=== PATIENT | female | born 1985 | race Caucasian/White ===

== ENCOUNTER 2022-06-29 22:57 | Emergency (ER) | payer MEDICAID ==
[~2022-06-29] VITALS: Ht 165.1 cm; Wt 85.0 kg
[2022-06-30 02:10] LABS: Eosinophils # (auto) 0.1 10 ^3/uL (0-0.8)
[2022-06-30 02:12] LABS: Basophils # (auto) 0 10 ^3/uL (0-0.2); Basophils % (auto) 0.5 % (0.0-2.0); Hematocrit 35.5 % (36.0-46.0); Hemoglobin 11.2 g/dL (12.2-16.2); Lymphocytes % (auto) 34.9 % (10.0-50.0); Mean Corpuscular Hgb Conc. 31.5 g/dL (32.0-36.0); Mean Corpuscular Volume 79.2 fL (80.0-100.0); Monocytes # (auto) 0.5 10 ^3/uL (0-1.3); Monocytes % (auto) 5.6 % (0.0-12.0); Red Blood Cells 4.48 10^6/uL (4.0-5.20); Red Cell Distribution Width 17.5 % (11.8-14.3); White Blood Cell 8.7 10^3/uL (4.4-10.8)
[2022-06-30 02:27] LABS: Albumin 3.5 g/dL (3.4-5.0); Anion Gap 8 (5-15); BUN/Creatinine Ratio 27.6; Blood Alcohol < 3.0 mg/dL (0-5); Blood Urea Nitrogen 21 mg/dL (7-18); Calcium 9.1 mg/dL (8.5-10.1); Carbon Dioxide 20 mmol/L (21-32); Chloride 110 mmol/L (98-107); GFR African American 112 mL/min; GFR Non-African American 93 mL/min; Glucose 103 mg/dL (74-106); Potassium 3.5 mmol/L (3.5-5.1); Sodium 138 mmol/L (136-145)
[2022-06-30 02:31] LABS: Alanine Aminotransferase 29 U/L (13-56); Alkaline Phosphatase 119 U/L (45-117); Aspartate Aminotransferase 12 U/L (15-37); Bilirubin, Total 0.2 mg/dL (0.2-1.0); Total Protein 7.9 g/dL (6.4-8.2)
[2022-06-30] MEDS ORDERED: LORazepam 2MG/ML-1ML VIAL IM ONE ×2 (06:45→20:30)
[2022-06-30] MEDS ORDERED: CEPH-510 PO (22:15)
[2022-07-01] MEDS ORDERED: HALOPERIDOL LACTATE 5 MG/ML INJ VIAL IM ONE (10:00)
[2022-07-01] MEDS: OLANZapine 5 MG TAB PO SCH (22:41)
[2022-07-02] MEDS: OLANZapine 5 MG TAB PO SCH ×2 (10:26→22:33)
[2022-07-03] MEDS ORDERED: LORazepam 2MG/ML-1ML VIAL IM ONE ×3 (01:15→01:30)
[2022-07-03] MEDS ORDERED: HALOPERIDOL LACTATE 5 MG/ML INJ VIAL IM ONE (01:15)
[2022-07-03] MEDS ORDERED: diphenhdrAMINE HCL 50 MG/1 ML VL IV ONE (01:15)
[2022-07-03] MEDS: OLANZapine 5 MG TAB PO SCH (15:17)
[2022-07-03 19:47] VITALS: BP 123/86
== END 2022-07-03 22:28 ==
LOC: EDBD 22:57 → ER 22:57
DX: R45.851 Suicidal ideations (principal); F41.9 Anxiety disorder, unspecified; F32.9 Major depressive disorder, single episode, unspecified; F20.9 Schizophrenia, unspecified; Z20.822 Contact with and (suspected) exposure to COVID-19
CPT/HCPCS: 36415; 80053; 80320; 84702; 85025; 87426; 96372; 96374; 99285; J1200; J2060

== ENCOUNTER 2022-09-05 16:11 | Emergency (ER) | payer MEDICAID ==
[~2022-09-05] VITALS: Ht 152.4 cm; Wt 76.0 kg
[~2022-09-05 16:11] MED LIST: CEPH-510 PO
[2022-09-05] MEDS ORDERED: ACETAMINOPHEN 500 MG TAB PO ONE (17:15)
[2022-09-05] MEDS ORDERED: ACET-1158 PO (18:00)
[2022-09-05] MEDS ORDERED: IBUP800T26 PO (18:00)
[2022-09-05 18:07] VITALS: BP 108/67
== END 2022-09-05 18:28 | disposition home or self-care (01) ==
LOC: ER 16:11
DX: S30.0XXA Contusion of lower back and pelvis, initial encounter (principal); W18.11XA Fall from or off toilet without subsequent striking against object, initial encounter; Y93.E1 Activity, personal bathing and showering; Y92.091 Bathroom in other non-institutional residence as the place of occurrence of the external cause; Y99.8 Other external cause status
CPT/HCPCS: 71111; 72220

== ENCOUNTER 2024-09-27 08:06 | Inpatient (IN) | payer MEDICAID ==
[~2024-09-27] VITALS: Ht 152.4 cm; Wt 96.7 kg
[2024-09-27] VITALS (7 sets, daily range): BP systolic 121–134; BP diastolic 77–92; PULSE 78–103; RESP 12–19; TEMP 98–98.6; O2SAT 90–100
[~2024-09-27 08:06] MED LIST changes: +ACET500T58 PO; +IBUP-1455 PO
--- NOTE | 2024-09-27 08:55 | ED.PDOC ---
SOB-HPI HPI Comments 39F presents to the ER w/ conference planning manager and w/ prior Hx of depression, anxiety, SZ and schizophrenia which all may be associated to the c/c of Hematuria. The conference planning manager stated that she noticed the pt having blood in her urine last night and it was clear today. When the pt arrived in triage she was complaining of Lower ABD pain, but the nurse noticed the pt having cough, congestion and SOB, then asked the conference planning manager how long she has been having these symptoms, and she stated that she just noticed. Pt had a SAT of 88% RA and was given 2L NC and is SAT of 100%. SHx of Brain Sx-hydrocephalus when younger.Denies chills, fever, N/V/D, CP or other associated symptom's, modifiers, or recent injuries or sick contact at this time. Chief Complaint: Shortness of Breath Time Seen by MD: 08:30 Primary Care Provider: MAX Mata notes: Nurses Notes, Medications, Allergies Information Source: Patient (and conference planning manager) Mode of Arrival: Ambulatory Severity: Moderate Timing: Hours Duration: Since onset Context: At Rest PE Risk Factors: None History of: Anxiety Prehospital treatment: None Associated Signs and Symptoms: Cough, Nasal Congestion If cough with SOB: Non-Productive Past Medical History PAST MEDICAL HISTORY: Anxiety, Depression, Schizophrenia, Seizures Surgical History (Other): Brain Sx-hydrocephalus when younger SEPARATOR OPERATOR History: No Pertinent SEPARATOR OPERATOR History Family History Family History: Reviewed,noncontributory to illness, Unknown Social History Smoker: Non-Smoker Alcohol: Denies ETOH Use Drugs: Denies Drug Use Lives In: Home Constitutional: denies: chills, diaphoresis, fatigue, fever, malaise, sweats, weakness, others EENTM: denies: blurred vision, double vision, ear bleeding, ear discharge, ear drainage, ear pain, ear ringing, eye pain, eye redness, hearing loss, mouth pain, mouth swelling, nasal discharge, nose bleeding, nose congestion, nose pain, photophobia, tearing, throat pain, throat swelling, voice changes, others Respiratory: reports: cough, shortness of breath; denies: hemoptysis, orthopnea, SOB at rest, SOB with excertion, stridor, wheezing, others Cardiovascular: denies: chest pain, dizzy spells, diaphoresis, Dyspnea on exertion, edema, irregular heart beat, left arm pain, lightheadedness, palpitations, PND, syncope, others Gastrointestinal: denies: abdomen distended, abdominal pain, blood streaked bowels, constipated, diarrhea, dysphagia, difficulty swallowing, hematemesis, melena, nausea, poor appetite, poor fluid intake, rectal bleeding, rectal pain, vomiting, others Genitourinary: reports: hematuria; denies: abnormal vagina bleeding, burning, dyspareunia, dysuria, flank pain, frequency, incontinence, pain, , vagina discharge, urgency, others Neurological: denies: dizziness, fainting, headache, left sided numbness, left sided weakness, numbness, paresthesia, pre-existing deficit, right sided numbness, right sided weakness, seizure, speech problems, tingling, tremors, weakness, others Musculoskeletal: denies: back pain, gout, joint pain, joint swelling, muscle pain, muscle stiffness, neck pain, others Integumetry: denies: bruises, change in color, change in hair/nails, dryness, laceration, lesions, lumps, rash, wounds, others Allergic/Immunocompromised: denies: Difficulty Healing, Frequent Infections, Hives, Itching, others Hematologic/Lymphatic: denies: anemia, blood clots, easy bleeding, easy bruising, swollen glands, others Endocrine: denies: excessive hunger, excessive sweating, excessive thirst, excessive urination, flushing, intolerance to cold, intolerance to heat, unexplained weight gain, unexplained weight loss, others Psychiatric: denies: anxiety, bipolar disorder, depression, hopeless, panic disorder, schizophrenia, sleepless, suicidal, others All Other Systems: Reviewed and Negative Physical Exam General Appearance: No Apparent Distress, Obese, Other (Sedated from own medic ations schizophrenia and anxiety) HEENT: Normal ENT Inspection, PERRL/EOMI, Pharynx Normal, TMs Normal, Other (No facial asymmetry) Neck: Full Range of Motion, Non-Tender, Normal, Normal Inspection Respiratory: Chest Non-Tender, Lungs Clear, No Accessory Muscle Use, No Respiratory Distress, Normal Breath Sounds Cardiovascular: No Edema, No JVD, No Murmur, No Gallop, Normal Peripheral Pulses, Regular Rate/Rhythm Breast Exam: Deferred Gastrointestinal: No Organomegaly, Non Tender, No Pulsatile Mass, Normal Bowel Sounds, Soft Genitalia: Deferred Pelvic: Deferred Rectal: Deferred Extremities: No calf tenderness, Normal capillary refill, Normal inspection, Normal range of motion, Non-tender, No pedal edema Musculoskeletal : Apperance: Normal Neurologic: Depressed Affect, No Sensory Deficits Cerebellar Function: Normal Reflexes: Normal Skin: Dry, Normal Color, Warm Peripheral Pulses: 1+ carotid (R), 1+ carotid (L) Lymphatic: No Adenopathy Was a procedure done? Was a procedure done?: No Differential Dx Differential Diagnosis: Anxiety, Bronchitis, Hypertension, Hyponatremia, Pneu monia, Sinusitis, URI X-Ray, Labs, Meds, VS Vital Signs Date Time Temp Pulse Resp B/P (MAP) Pulse Ox O2 Delivery O2 Flow Rate FiO2 09/27/24 08:56 28 88 Room Air* 0 21 09/27/24 08:12 98.9 114 28 143/89 (107) 88 X-Ray, Labs, Meds, VS Comment COURSE IN THE EMERGENCY DEPARTMENT EVENTFUL PATIENT CAME IN COMPLAINING OF BLOOD IN THE URINE WITH A LETHARGY COUGH AND CONGESTION AND FLUID RETENTION BLOOD PRESSURE 143/89 THE CHEST X-RAY SHOWS MULTIFOCAL AIRSPACE DISEASE CBC NORMAL CMP NEGATIVE URINE NEGATIVE PATIENT WILL BE ADMITTED FOR FURTHER CARE Time of 1ST Reevaluation: 09:00 Reevaluation 1ST: Unchanged Time of 2ND Reevaluation: 17:57 Reevaluation 2ND: Unchanged Patient Education/Counseling: Diagnosis, Treatment, Prognosis Family Education/Counseling: Diagnosis, Treatment, Prognosis, Other (conference planning manager was present) Departure 1 Departure Time of Disposition: 10:00 Impression: Primary Impression: Lethargy Additional Impressions: Opacities of both lungs present on chest x-ray Schizophrenia Qualified Codes: F20.1 - Disorganized schizophrenia Generalized anxiety disorder History of seizure disorder Ruled Out: Hematuria Disposition: ADMITTED INPATIENT Admit to: Tele Condition: Fair Critical Care Note Critical Care Time?: No Stability Stability form required: Yes Unstable for transfer: Telemetry monitoring (Telemetry monitoring required), Requires medication (Requires Med for stabilization) Heart Score Heart Score: Heart Score Response (Comments) Value History N/A 0 EKG N/A 0 Age <45 0 Risk Factors 1 or 2 risk factors 1 Troponin N/A 0 Total 1 I personally scribed for LEONORA PLATA MD ([email or web address]) on 09/27/24 at 08:55. Electronically submitted by Liborio Grant ([email or web address]). LEONORA PLATA MD Sep 27, 2024 08:55
--- NOTE | 2024-09-27 09:16 | DVH ---
CHEST RADIOGRAPH Indication: SOB Technique: Frontal and lateral view of the chest was obtained Comparison: None FINDINGS: Lines and Tubes: PHARMACY MESSENGER shunt catheter tubing overlies the left chest. Lungs: Multifocal airspace disease. Pleura: No effusion. No pneumothorax. Cardiomediastinal contours: Cardiomegaly Bones: Unremarkable IMPRESSION: Multifocal airspace disease.
[2024-09-27 09:22] LABS: Basophils # (auto) 0 10 ^3/uL (0-0.2)
[2024-09-27 09:29] LABS: Basophils % (auto) 0.1 % (0.0-2.0); Eosinophils # (auto) 0.1 10 ^3/uL (0-0.8); Eosinophils % (auto) 1.4 % (0.0-7.0); Hematocrit 46.7 % (36.0-46.0); Hemoglobin 14.4 g/dL (12.2-16.2); Lymphocytes # (auto) 1.7 10 ^3/uL (0.4-5.4); Lymphocytes % (auto) 24.8 % (10.0-50.0); Mean Corpuscular Hemoglobin 26.9 pg (28.0-32.0); Mean Corpuscular Hgb Conc. 30.7 g/dL (32.0-36.0); Mean Corpuscular Volume 87.4 fL (80.0-100.0); Monocytes % (auto) 15.3 % (0.0-12.0); Neutrophils # (auto) 3.9 10 ^3/uL (1.6-8.6); Neutrophils % (auto) 58.4 % (37.0-80.0); Nucleated Red Blood Cells % 0.1 %; Platelet Count (auto) 162 10^3/uL (140-450); Red Blood Cells 5.35 10^6/uL (4.0-5.20); Red Cell Distribution Width 17.1 % (11.8-14.3); White Blood Cell 6.7 10^3/uL (4.4-10.8)
[2024-09-27 09:41] LABS: Alanine Aminotransferase 14 U/L (7-40); Albumin 4.5 g/dL (3.2-4.8); Anion Gap 6 (5-15); Aspartate Aminotransferase 17 U/L (13-40); BUN/Creatinine Ratio 11.6 (10.0-20.0); Blood Urea Nitrogen 10 mg/dL (9-23); Calcium 9.8 mg/dL (8.7-10.4); Chloride 103 mmol/L (98-107); Glucose 105 mg/dL (74-106); Sodium 141 mmol/L (136-145)
[2024-09-27 09:42] LABS: Total Protein 7.4 g/dL (5.7-8.2)
[2024-09-27 09:44] LABS: Alkaline Phosphatase 117 U/L (46-116); Bilirubin, Total 0.2 mg/dL (0.2-1.0); Carbon Dioxide 32 mmol/L (20-31)
[2024-09-27 10:49] LABS: Urine Bacteria None Seen /hpf (None Seen)
[2024-09-27 11:20] LABS: Urine Blood Negative /uL (Negative); Urine Clarity Clear (Clear); Urine Color Light-Yellow (Yellow); Urine Protein, UAD Negative (Negative); Urine Specific Gravity 1.012 (1.001-1.035); Urine Squamous Epithelial Cell FEW /hpf (<5); Urine Urobilinogen 2 mg/dL (Negative); Urine WBC < 1 /HPF (0-5)
[2024-09-27] MEDS: cefTRIAXone 1GM/50ML D5W 50 ML IV ONE (12:37)
[2024-09-27] MEDS: AZITHROMYCIN 500MG/ 250ML 250 ML IV ONE (12:37)
[2024-09-27] MEDS ORDERED: ACETAMINOPHEN 325 MG TAB PO PRN ×2 (14:45→15:00)
[2024-09-27] MEDS ORDERED: HYDROcodone-ACET 5/325MG TAB PO PRN ×2 (14:45→15:00)
[2024-09-27] MEDS ORDERED: ALBUTEROL SULF 2.5 MG/0.5ML(0.5%) NEB SOLN NEB PRN ×2 (14:45→15:00)
[2024-09-27] MEDS ORDERED: IPRATROPIUM BROM 0.5 MG/2.5ML INH SOL NEB PRN ×2 (14:45→15:00)
[2024-09-27] MEDS ORDERED: MORPHINE SULFATE INJ 2 MG/ml SYRG IV PRN ×2 (14:45→15:00)
[2024-09-27] MEDS ORDERED: ONDANSETRON HCL 4 MG/2 ML VIAL IV PRN ×2 (14:45→15:00)
--- NOTE | 2024-09-27 14:52 | DVHHP2 ---
History of Present Illness Reason for Visit: Shortness of breath History of Present Illness This 39-year-old female with past medical history of hydrocephalus s/p brain surgery, schizophrenia, depression, anxiety, and obesity, presents in the ED with a chief complaint of hematuria. The patient is caregiver reports started noticing hematuria in the urine last night but noted urine clear today. The patient also reports has been having cough for the past few days associated with congestion, shortness of breath for which prompted her ED visit. Upon arrival the patient's O2 saturation noted in 88% RA for which the patient was placed on O2 supplement. She denies fevers, chills, nausea, vomiting, abdominal pain, difficulty in breathing or other acute symptoms. Past Medical History As stated in HPI Past Surgical History Brain surgery Family History Reviewed, non-contributory to the management of this case. Past Social History The patient lives at home, denies smoking, alcohol or illicit drugs abuse. Review of Systems Constitutional: Yes: Malaise; No: Fever, Chills, Sweats, Weakness, Other Eyes: No: Pain, Vision change, Conjunctivae inflammation, Eyelid inflammation, Other, Redness ENT: No: Ear pain, Ear discharge, Nose pain, Nose discharge, Nose congestion, M outh pain, Mouth swelling, Throat pain, Throat swelling, Other Respiratory: Cough, Shortness of breath; No: Dry, SOB with excertion, Wheezing, Hemoptysis, Pleuritic Pain, Sputum, Wheezing, Other Cardiovascular: No: Chest Pain, Palpitations, Orthopnea, Paroxysmal Noc. Dyspnea, Edema, Lt Headedness, Other Gastrointestinal: No: Nausea, Vomiting, Abdominal Pain, Diarrhea, Constipation, Melena, Hematochezia, Other Genitourinary: No Dysuria, No Frequency, No Incontinence; Hematuria; No Retention, No Other Musculoskeletal: No: other, neck pain, shoulder pain, arm pain, back pain, hand pain, leg pain, foot pain Skin: No: Rash, Lesions, Jaundice, Bruising, Other Neurological: No: Weakness, Numbness, Incoordination, Change in speech, Confusion, Seizures, Other Allergies: Coded Allergies: Carbamazepine (Unverified Allergy, Severe, 12/28/14) Exam Vital Signs Vital Signs Date Time Temp Pulse Resp B/P (MAP) Pulse Ox O2 Delivery O2 Flow Rate FiO2 09/27/24 10:49 96 Nasal Cannula* 2 28 09/27/24 10:45 103 16 09/27/24 10:45 98.5 130/88 (102) 98.5 General Appearance: Alert, Oriented X3, Cooperative, mild distress HEENT: Atraumatic, PERRLA, EOMI, Mucous membr. moist/pink Respiratory: Other (Diminished lung sounds) Cardiovascular: Regular rate, Normal S1, Normal S2 Abdominal: Normal bowel sounds, Soft, No tenderness, No hepatospenomegaly Extremities: No clubbing, No cyanosis, No edema, Normal pulses Skin: No rashes, No breakdown, No significant lesion Neuro: Normal speech Psych/Mental Status: Mental status NL Labs/Xrays Labs Test 09/27/24 09:01 09/27/24 00:10 Range/Units White Blood Count 6.7 4.4-10.8 10^3/uL Red Blood Count 5.35 H 4.0-5.20 10^6/uL Hemoglobin 14.4 12.2-16.2 g/dL Hematocrit 46.7 H 36.0-46.0 % Mean Corpuscular Volume 87.4 80.0-100.0 fL Mean Corpuscular Hemoglobin 26.9 L 28.0-32.0 pg Mean Corpuscular Hemoglobin Concent 30.7 L 32.0-36.0 g/dL Red Cell Distribution Width 17.1 H 11.8-14.3 % Platelet Count 162 140-450 10^3/uL Mean Platelet Volume 8.5 6.9-10.8 fL Neutrophils (%) (Auto) 58.4 37.0-80.0 % Lymphocytes (%) (Auto) 24.8 10.0-50.0 % Monocytes (%) (Auto) 15.3 H 0.0-12.0 % Eosinophils (%) (Auto) 1.4 0.0-7.0 % Basophils (%) (Auto) 0.1 0.0-2.0 % Neutrophils # (Auto) 3.9 1.6-8.6 10 ^3/uL Lymphocytes # (Auto) 1.7 0.4-5.4 10 ^3/uL Monocytes # (Auto) 1.0 0-1.3 10 ^3/uL Eosinophils # (Auto) 0.1 0-0.8 10 ^3/uL Basophils # (Auto) 0 0-0.2 10 ^3/uL Nucleated Red Blood Cells 0.1 % Sodium Level 141 136-145 mmol/L Potassium Level 4.0 3.5-5.1 mmol/L Chloride Level 103 98-107 mmol/L Carbon Dioxide Level 32 H 20-31 mmol/L Anion Gap 6 5-15 Blood Urea Nitrogen 10 9-23 mg/dL Creatinine 0.86 0.550-1.02 mg/dL Glomerular Filtration Rate Calc 89 >90 mL/min BUN/Creatinine Ratio 11.6 10.0-20.0 Serum Glucose 105 74-106 mg/dL Calcium Level 9.8 8.7-10.4 mg/dL Total Bilirubin 0.2 0.2-1.0 mg/dL Aspartate Amino Transferase (AST) 17 13-40 U/L Alanine Aminotransferase (ALT) 14 7-40 U/L Alkaline Phosphatase 117 H 46-116 U/L Total Protein 7.4 5.7-8.2 g/dL Albumin 4.5 3.2-4.8 g/dL Urine Color Light-yellow Yellow Urine Clarity Clear Clear Urine pH 7.0 5.0-9.0 Urine Specific [place] 1.012 1.001-1.035 Urine Protein Negative Negative Urine Ketones Negative Negative Urine Blood Negative Negative /uL Urine Nitrite Negative Negative Urine Bilirubin Negative Negative Urine Urobilinogen 2 H Negative mg/dL Urine Leukocyte Esterase Negative Negative /uL Urine RBC 1 0 - 4 /hpf Urine Microscopic WBC < 1 0-5 /HPF Urine Squamous Epithelial Cells Few <5 /hpf Urine Bacteria None seen None Seen /hpf Urine Glucose Normal Normal mg/dL PROCEDURE(s): CXR2 - CHEST TWO VIEWS ROUTINE REASON: SOB ORDER NUMBER(s): [id number], ACCESSION NUMBER(s): [id number] CHEST RADIOGRAPH Indication: SOB Technique: Frontal and lateral view of the chest was obtained Comparison: None FINDINGS: Lines and Tubes: ANIMAL NUTRITION TEACHER shunt catheter tubing overlies the left chest. Lungs: Multifocal airspace disease. Pleura: No effusion. No pneumothorax. Cardiomediastinal contours: Cardiomegaly Bones: Unremarkable IMPRESSION: Multifocal airspace disease. Assessment/Plan Assessment/Plan # acute respiratory failure with hypoxemia # possible pneumonia Admit to medical unit Empiric antibiotic ceftriaxone and azithromycin Med neb treatment Blood and sputum culture Chest x-ray in a.m. Check for COVID and influenza # morbid obesity Counseled on diet and weight loss # schizophrenia # depression # anxiety Pharmacy to reconcile meds # hx seizures # s/p brain surgery for hydrocephalus Seizures precaution DVT prophylaxis Medical plan discussed with patient and caregiver Plan discussed with: Patient, Other (Caregiver) Date of Service: Sep 27, 2024 Billing Provider: [facility] Common Visit Codes: [id number] INP/OBS CARE (HIGH) [facility] Sep 27, 2024 14:52
[2024-09-27] MEDS ORDERED: IPRATROPIUM BROM 0.5 MG/2.5ML INH SOL NEB SCH (18:00)
[2024-09-27] MEDS ORDERED: ALBUTEROL SULF 2.5 MG/0.5ML(0.5%) NEB SOLN NEB SCH (18:00)
[2024-09-27 18:06] LABS: COVID19 ANTIGEN SOFIA FIA NEGATIVE (NEGATIVE); Rapid Influenza A Negative (Negative); Rapid Influenza B Negative (Negative)
[2024-09-27] MEDS: ALBUTEROL SULF 2.5 MG/0.5ML(0.5%) NEB SOLN NEB SCH (18:48)
[2024-09-27] MEDS: IPRATROPIUM BROM 0.5 MG/2.5ML INH SOL NEB SCH (18:48)
[2024-09-28] VITALS (17 sets, daily range): BP systolic 108–141; BP diastolic 60–83; PULSE 69–102; RESP 16–19; TEMP 97.7–99.1; O2SAT 94–100
--- NOTE | 2024-09-28 06:17 | DVH ---
EXAM: XR Chest, 1 View CLINICAL INDICATION: sob TECHNIQUE: Frontal view of the chest. COMPARISON: None FINDINGS: LUNGS AND PLEURAL SPACES: See below. HEART: Cardiomegaly with pulmonary congestion and edema. Superimposed pneumonia cannot be excluded. MEDIASTINUM: Unremarkable. Normal mediastinal contour. BONES/JOINTS: Unremarkable. No acute fracture. OTHER FINDINGS: . IMPRESSION: Cardiomegaly with pulmonary congestion and edema. Superimposed pneumonia cannot be excluded.
[2024-09-28 06:47] LABS: Basophils # (auto) 0 10 ^3/uL (0-0.2); Basophils % (auto) 0.3 % (0.0-2.0); Eosinophils # (auto) 0.1 10 ^3/uL (0-0.8); Eosinophils % (auto) 1.8 % (0.0-7.0); Hematocrit 42.3 % (36.0-46.0); Hemoglobin 13.8 g/dL (12.2-16.2); Lymphocytes # (auto) 1.6 10 ^3/uL (0.4-5.4); Lymphocytes % (auto) 28.6 % (10.0-50.0); Mean Corpuscular Hemoglobin 27.2 pg (28.0-32.0); Mean Corpuscular Hgb Conc. 32.6 g/dL (32.0-36.0); Mean Corpuscular Volume 83.4 fL (80.0-100.0); Monocytes # (auto) 0.7 10 ^3/uL (0-1.3); Monocytes % (auto) 12.3 % (0.0-12.0); Neutrophils # (auto) 3.1 10 ^3/uL (1.6-8.6); Nucleated Red Blood Cells % 0.1 %; Platelet Count (auto) 176 10^3/uL (140-450); Red Blood Cells 5.07 10^6/uL (4.0-5.20); Red Cell Distribution Width 16.3 % (11.8-14.3); White Blood Cell 5.4 10^3/uL (4.4-10.8)
[2024-09-28 07:03] LABS: Alanine Aminotransferase 13 U/L (7-40); Albumin 4.1 g/dL (3.2-4.8); Alkaline Phosphatase 95 U/L (46-116); Anion Gap 6 (5-15); Aspartate Aminotransferase 18 U/L (13-40); BUN/Creatinine Ratio 17.6 (10.0-20.0); Blood Urea Nitrogen 13 mg/dL (9-23); Calcium 9.6 mg/dL (8.7-10.4); Chloride 103 mmol/L (98-107); Glucose 84 mg/dL (74-106); Potassium 3.7 mmol/L (3.5-5.1); Sodium 141 mmol/L (136-145); Total Protein 6.8 g/dL (5.7-8.2)
[2024-09-28 07:08] LABS: Bilirubin, Total 0.2 mg/dL (0.2-1.0); Carbon Dioxide 32 mmol/L (20-31)
[2024-09-28] MEDS: cefTRIAXone 1GM/50ML D5W 50 ML IV SCH (08:28)
[2024-09-28] MEDS ORDERED: cefTRIAXone 1GM/50ML D5W 50 ML IV SCH (09:00)
[2024-09-28] MEDS: AZITHROMYCIN 500MG/ 250ML 250 ML IV SCH (09:41)
[2024-09-28] MEDS: ENOXAPARIN SOD 40 MG/0.4 ML SYRINGE SC SCH (09:41)
[2024-09-28] MEDS ORDERED: ENOXAPARIN SOD 40 MG/0.4 ML SYRINGE SC SCH (10:00)
[2024-09-28] MEDS ORDERED: AZITHROMYCIN 500MG/ 250ML 250 ML IV SCH (10:00)
--- NOTE | 2024-09-28 16:20 | DVHPNRES ---
Progress Note Date Seen: Sep 28, 2024 Resident Creating Document: LAMINE MENA RESIDENT Has the PT tested + for MRSA If YES, has PT been informed?: No Medical Necessity Reason Pt with a Central, PICC or Fol: No Subjective Review of Systems A 39-year-old female with past medical history of hydrocephalus s/p brain surgery, schizophrenia, depression, anxiety, and obesity who presented to ED due to having cough for the past few days associated with congestion, shortness of breath for which prompted her ED visit. Upon arrival the patient's O2 saturation noted in 88% RA for which the patient was placed on O2 supplement. She denies fevers, chills, nausea, vomiting, abdominal pain, difficulty in b reathing or other acute symptoms. Objective vital signs Vital Sign Date Time Temp Pulse Resp B/P (MAP) Pulse Ox O2 Delivery O2 Flow Rate FiO2 09/28/24 13:00 98.0 83 17 124/83 (97) 96 98.0 09/28/24 11:07 Nasal Cannula* 2 28 Total Intake and Output 09/27/24 09/27/24 09/28/24 15:00 23:00 07:00 Intake Total 50 ml 0 ml Balance 50 ml 0 ml medications Current Medications Medications Dose Ordered Sig/Rose Mary Route Start Time Stop Time Status Last Admin Dose Admin Ipratropium [place] 0.5 mg Q4HPRN PRN NEB 09/27/24 15:00 Ipratropium [place] 0.5 mg Q6HR NEB 09/27/24 18:00 09/28/24 11:07 0.5 MG Ondansetron HCl 4 mg Q4HP PRN IV 09/27/24 15:00 Enoxaparin Sodium 40 mg DAILY SC 09/28/24 10:00 09/28/24 09:41 40 MG Morphine Sulfate 2 mg Q4HPRN PRN IV 09/27/24 15:00 Ceftriaxone Sodium 50 ml @ 100 mls/hr DAILY@09 IV 09/28/24 09:00 09/28/24 08:28 100 MLS/HR Azithromycin 250 ml @ 125 mls/hr DAILY IV 09/28/24 10:00 09/28/24 09:41 125 MLS/HR Acetaminophen/ Hydrocodone Bitart 1 tab Q4HP PRN PO 09/27/24 15:00 Acetaminophen 650 mg Q6HP PRN PO 09/27/24 15:00 Albuterol 2.5 mg Q4HPRN PRN NEB 09/27/24 15:00 Albuterol 2.5 mg Q6HR NEB 09/27/24 18:00 09/28/24 11:08 2.5 MG Examination General Appearance: Alert, Oriented X3, Cooperative, mild distress HEENT: Atraumatic, PERRLA, EOMI, Mucous membr. moist/pink Respiratory: Other (Diminished lung sounds) Cardiovascular: Regular rate, Normal S1, Normal S2 Abdominal: Normal bowel sounds, Soft, No tenderness, No hepatospenomegaly Extremities: No clubbing, No cyanosis, No edema, Normal pulses Skin: No rashes, No breakdown, No significant lesion Neuro: Normal speech Psych/Mental Status: Mental status NL laboratory and microbiology Laboratory Tests 09/28/24 06:13 Test 09/28/24 06:13 Range/Units Serum Glucose 84 74-106 mg/dL Microbiology Date/Time Source Procedure Growth Status 09/27/24 13:21 Blood Blood Culture - Preliminary NO GROWTH AFTER 24 HOURS OF INCUBATION. Resulted Problem List/Assessment/Plan Problem List/Assessment/Plan # acute respiratory failure with hypoxemia # possible pneumonia gram neg/ gram pos Empiric antibiotic ceftriaxone and azithromycin Med neb treatment Blood and sputum culture pending Chest x-ray : Cardiomegaly with pulmonary congestion and edema. Superimposed pneumonia cannot be excluded. COVID and influenza neg # morbid obesity Counseled on diet and weight loss # schizophrenia # depression # anxiety Pharmacy to reconcile meds # hx seizures # s/p brain surgery for hydrocephalus Seizures precaution DVT prophylaxis Case discussed with Dr Griggs Time spent on care 23 min Plan discussed with: Patient, Other (rn) Date of Service: Sep 28, 2024 Billing Provider: ELIZABETH GRIGGS MD Common Visit Codes: [id number] INP/OBS CARE(HIGH) LAMINE MENA RESIDENT Sep 28, 2024 16:20 ELIZABETH GRIGGS MD Sep 29, 2024 08:57
[2024-09-28] MEDS ORDERED: PSEU-295 PO (16:29)
[2024-09-28] MEDS ORDERED: FURO20TA3 PO (16:29)
[2024-09-28] MEDS ORDERED: LEVE5SOL PO (16:29)
[2024-09-28] MEDS ORDERED: VALP250S19 PO (16:29)
[2024-09-28] MEDS ORDERED: OLAN1TAB75 PO (16:29)
[2024-09-28] MEDS ORDERED: VENL1TAB99 PO (16:29)
[2024-09-28] MEDS ORDERED: CHLO200T8 PO (16:29)
[2024-09-29] VITALS (22 sets, daily range): BP systolic 106–122; BP diastolic 67–81; PULSE 72–111; RESP 17–20; TEMP 97.9–98.8; O2SAT 93–99
[2024-09-29] MEDS: FUROSEMIDE 40 MG/4 ML VIAL IV ONE (09:53)
[2024-09-29 12:22] LABS: Alanine Aminotransferase 19 U/L (7-40); Albumin 4.2 g/dL (3.2-4.8); Alkaline Phosphatase 97 U/L (46-116); Anion Gap 7 (5-15); Aspartate Aminotransferase 22 U/L (13-40); BUN/Creatinine Ratio 11.8 (10.0-20.0); Calcium 10.3 mg/dL (8.7-10.4); Carbon Dioxide 30 mmol/L (20-31); Chloride 102 mmol/L (98-107); Glucose 93 mg/dL (74-106); Potassium 4.1 mmol/L (3.5-5.1); Sodium 139 mmol/L (136-145)
[2024-09-29 12:23] LABS: Total Protein 7.6 g/dL (5.7-8.2)
[2024-09-29 12:31] LABS: Bilirubin, Total 0.2 mg/dL (0.2-1.0); Blood Urea Nitrogen 8 mg/dL (9-23)
[2024-09-29 12:37] LABS: Basophils # (auto) 0 10 ^3/uL (0-0.2); Basophils % (auto) 0.4 % (0.0-2.0); Eosinophils # (auto) 0.1 10 ^3/uL (0-0.8); Eosinophils % (auto) 1.1 % (0.0-7.0); Hematocrit 44.6 % (36.0-46.0); Hemoglobin 14.6 g/dL (12.2-16.2); Lymphocytes # (auto) 1.8 10 ^3/uL (0.4-5.4); Lymphocytes % (auto) 27.9 % (10.0-50.0); Mean Corpuscular Hemoglobin 27.2 pg (28.0-32.0); Mean Corpuscular Hgb Conc. 32.8 g/dL (32.0-36.0); Mean Corpuscular Volume 83.2 fL (80.0-100.0); Monocytes # (auto) 0.8 10 ^3/uL (0-1.3); Monocytes % (auto) 12.4 % (0.0-12.0); Neutrophils # (auto) 3.7 10 ^3/uL (1.6-8.6); Neutrophils % (auto) 58.2 % (37.0-80.0); Nucleated Red Blood Cells % 0.1 %; Platelet Count (auto) 192 10^3/uL (140-450); Red Blood Cells 5.36 10^6/uL (4.0-5.20); Red Cell Distribution Width 16.4 % (11.8-14.3); White Blood Cell 6.3 10^3/uL (4.4-10.8)
--- NOTE | 2024-09-29 15:58 | DVHPNRES ---
Progress Note Date Seen: Sep 29, 2024 Resident Creating Document: LAMINE MENA RESIDENT Has the PT tested + for MRSA If YES, has PT been informed?: No Medical Necessity Reason Pt with a Central, PICC or Fol: No Subjective Review of Systems A 39-year-old female with past medical history of hydrocephalus s/p brain surgery, schizophrenia, depression, anxiety, and obesity who presented to ED due to having cough for the past few days associated with congestion, shortness of breath for which prompted her ED visit. Upon arrival the patient's O2 saturation noted in 88% RA for which the patient was placed on O2 supplement. She denies fevers, chills, nausea, vomiting, abdominal pain, difficulty in b reathing or other acute symptoms Objective vital signs Vital Sign Date Time Temp Pulse Resp B/P (MAP) Pulse Ox O2 Delivery O2 Flow Rate FiO2 09/29/24 12:42 98.4 88 17 110/81 (91) 95 98.4 09/29/24 10:00 Nasal Cannula 3.0 09/29/24 10:00 32 Total Intake and Output 09/28/24 09/28/24 09/29/24 15:00 23:00 07:00 Intake Total 300 ml 1295 ml 800 ml Output Total 150 ml Balance 300 ml 1295 ml 650 ml medications Current Medications Medications Dose Ordered Sig/Rose Mary Route Start Time Stop Time Status Last Admin Dose Admin Ipratropium [place] 0.5 mg Q4HPRN PRN NEB 09/27/24 15:00 Ipratropium [place] 0.5 mg Q6HR NEB 09/27/24 18:00 09/29/24 11:25 0.5 MG Ondansetron HCl 4 mg Q4HP PRN IV 09/27/24 15:00 Enoxaparin Sodium 40 mg DAILY SC 09/28/24 10:00 09/29/24 09:52 40 MG Morphine Sulfate 2 mg Q4HPRN PRN IV 09/27/24 15:00 Ceftriaxone Sodium 50 ml @ 100 mls/hr DAILY@09 IV 09/28/24 09:00 09/29/24 09:52 100 MLS/HR Azithromycin 250 ml @ 125 mls/hr DAILY IV 09/28/24 10:00 09/29/24 11:52 125 MLS/HR Acetaminophen/ Hydrocodone Bitart 1 tab Q4HP PRN PO 09/27/24 15:00 Acetaminophen 650 mg Q6HP PRN PO 09/27/24 15:00 Albuterol 2.5 mg Q4HPRN PRN NEB 09/27/24 15:00 Albuterol 2.5 mg Q6HR NEB 09/27/24 18:00 09/29/24 11:25 2.5 MG Examination General Appearance: Alert, Oriented X3, Cooperative, mild distress HEENT: Atraumatic, PERRLA, EOMI, Mucous membr. moist/pink Respiratory: Other (Diminished lung sounds) Cardiovascular: Regular rate, Normal S1, Normal S2 Abdominal: Normal bowel sounds, Soft, No tenderness, No hepatospenomegaly Extremities: No clubbing, No cyanosis, No edema, Normal pulses Skin: No rashes, No breakdown, No significant lesion Neuro: Normal speech Psych/Mental Status: Mental status NL laboratory and microbiology Laboratory Tests 09/29/24 11:17 Test 09/29/24 11:17 Range/Units Serum Glucose 93 74-106 mg/dL Microbiology Date/Time Source Procedure Growth Status 09/27/24 13:21 Blood Blood Culture - Preliminary NO GROWTH AFTER 48 HOURS OF INCUBATION. Resulted Problem List/Assessment/Plan Problem List/Assessment/Plan # acute respiratory failure with hypoxemia # possible pneumonia gram neg/ gram pos #cardiomegaly #pulmonary congestion Empiric antibiotic ceftriaxone and azithromycin Med neb treatment Blood and sputum culture pending Chest x-ray : Cardiomegaly with pulmonary congestion and edema. Superimposed pneumonia cannot be excluded. COVID and influenza neg sat 86-88% without O2, pending ABG in room air ECHO ordered to check RVSP pending lecture Lasix IV once # morbid obesity Counseled on diet and weight loss # schizophrenia # depression # anxiety Pharmacy to reconcile meds # hx seizures # s/p brain surgery for hydrocephalus Seizures precaution DVT prophylaxis Case discussed with Dr Griggs Time spent on care 23 min Plan discussed with: Patient, Other My Orders My Orders Orders - LAMINE MENA RESIDENT Procedure Category Date Status Time Abg W/ Co-Ox RT 09/29/24 Logged 08:41 * Brassiere Cup Mold Cutter CONS 09/29/24 Transmitted Consult Drug Screen LAB 09/29/24 Logged 11:09 Date of Service: Sep 29, 2024 Billing Provider: ELIZABETH GRIGGS MD Common Visit Codes: [id number] INP/OBS CARE(HIGH) LAMINE MENA RESIDENT Sep 29, 2024 15:58 ELIZABETH GRIGGS MD Oct 05, 2024 09:17
[2024-09-29] MEDS: FUROSEMIDE 20 MG TAB PO SCH (17:53)
[2024-09-29] MEDS: levETIRAcetam 500 MG TAB PO SCH (21:24)
[2024-09-29] MEDS: OLANZapine 5 MG TAB PO SCH (21:25)
[2024-09-29] MEDS: chlorproMAZINE HCL 25 MG TAB PO SCH (21:25)
[2024-09-30] VITALS (17 sets, daily range): BP systolic 114–141; BP diastolic 71–87; PULSE 73–101; RESP 16–18; TEMP 36.3; O2SAT 94–98
[2024-09-30 09:48] LABS: Base Excess 2.1 mmol/L (-2.0-3.0)
[2024-09-30] MEDS: VENLAFAXINE HCL 37.5MG TABLET PO SCH (10:00)
[2024-09-30] MEDS ORDERED: LEVO750T40 PO (10:38)
--- NOTE | 2024-09-30 15:42 | DVHSR ---
APPROVED REPORT EXAM: Two-dimensional and M-mode echocardiogram with Doppler and color Doppler. Blood Pressure: 113/73 mmHg INDICATION Check RVSP RISK FACTORS Height: 60, Weight: 225 DIMENSIONS LVDd4.1 (3.8-5.7cm)LA (2D)3.7 (1.9-4.0cm)Aortic Root2.9 (2.0-3.7cm) LVDs2.9 (2.5-4.0cm)LA (MM) (1.9-4.0cm)Aortic Cusp Exc1.5 (1.5-2.0cm) EF (%) 55.0 (55-70%)Rt. Atrium (1.9-4.0cm)Asc. Aorta cm IVSd0.9 (0.7-1.1cm)RV (D) (1.8-2.4cm) PWd1.1 (0.7-1.1cm) Mitral Valve MitralMitral Stenosis E wave0.67m/sMV Mean GR.mmHg A wave0.57m/sMV Peak GR.mmHg E/A ratio1.22D MVAcm2 DECEL [id number] 1/2 [id number] IVRTmsDop MVA3.19cm2 Aortic Valve Aortic ValveAortic Stenosis V11.15m/Bradley Mean GR.6mmHg V21.64m/Bradley Peak GR.11mmHg LVOT Diameter1.9 (1.8-2.4cm)Doppler AVA1.99cm2 Pulmonic Valve V21.10m/s Tricuspid Valve [id number] Conclusion Sinus rhythm. Normal chamber sizes. The aortic valve is normal. The mitral and tricuspid are within normal limits. The pulmonic valve i s normal. EF of 55-60% with normal RV function. Mild TR. No pericardial effusion masses or vegetations.
--- NOTE | 2024-09-30 15:42 | DVHDSRES ---
Discharge Summary Date of Admission Resident Creating Document: BRETT LAMINE Bowman RESIDENT Sep 27, 2024 at 14:39 Date of Discharge: Sep 30, 2024 Admitting Diagnosis acute respiratory failure Labs/Diagnostic Data: Laboratory Results Test 09/30/24 09:42 09/29/24 11:17 09/27/24 16:58 09/27/24 00:10 Blood Gas Specimen Type Arterial Blood Gas Sample Site Right radial Blood Gas Patient Temperature 37.0 Arterial Blood Date Drawn [id number] Arterial Blood pH 7.346 (7.350-7.450) Arterial Blood Partial Pressure CO2 54.3 mmHg (32.0-45.0) Arterial Blood Partial Pressure O2 50.5 mmHg (83.0-108.0) Arterial Blood HCO3 29.0 mmol/L (21.0-28.0) Arterial Blood Oxygen Saturation 86.0 % (94.0-98.0) Arterial Blood Base Excess 2.1 mmol/L (-2.0-3.0) Arterial Blood Oxyhemoglobin 84.9 % (94.0-98.0) Arterial Blood Carboxyhemoglobin 1.0 % (0.5-1.5) Arterial Blood Methemoglobin 0.3 % (0.0-1.5) Freddy Test Yes Blood Gas Total Hemoglobin 14.90 g/dL (12.0-16.0) Blood Gas Modality Room air FiO2 % 21.0 Blood Gas Critical Value Read Back Yes Blood Gas Notified Whom Brett roper Blood Gas Notified Time [id number] Blood Gas Notified By Jan cedeño White Blood Count 6.3 10^3/uL (4.4-10.8) Red Blood Count 5.36 10^6/uL (4.0-5.20) Hemoglobin 14.6 g/dL (12.2-16.2) Hematocrit 44.6 % (36.0-46.0) Mean Corpuscular Volume 83.2 fL (80.0-100.0) Mean Corpuscular Hemoglobin 27.2 pg (28.0-32.0) Mean Corpuscular Hemoglobin Concent 32.8 g/dL (32.0-36.0) Red Cell Distribution Width 16.4 % (11.8-14.3) Platelet Count 192 10^3/uL (140-450) Mean Platelet Volume 8.3 fL (6.9-10.8) Neutrophils (%) (Auto) 58.2 % (37.0-80.0) Lymphocytes (%) (Auto) 27.9 % (10.0-50.0) Monocytes (%) (Auto) 12.4 % (0.0-12.0) Eosinophils (%) (Auto) 1.1 % (0.0-7.0) Basophils (%) (Auto) 0.4 % (0.0-2.0) Neutrophils # (Auto) 3.7 10 ^3/uL (1.6-8.6) Lymphocytes # (Auto) 1.8 10 ^3/uL (0.4-5.4) Monocytes # (Auto) 0.8 10 ^3/uL (0-1.3) Eosinophils # (Auto) 0.1 10 ^3/uL (0-0.8) Basophils # (Auto) 0 10 ^3/uL (0-0.2) Nucleated Red Blood Cells 0.1 % Sodium Level 139 mmol/L (136-145) Potassium Level 4.1 mmol/L (3.5-5.1) Chloride Level 102 mmol/L (98-107) Carbon Dioxide Level 30 mmol/L (20-31) Anion Gap 7 (5-15) Blood Urea Nitrogen 8 mg/dL (9-23) Creatinine 0.68 mg/dL (0.550-1.02) Glomerular Filtration Rate Calc 115 mL/min (>90) BUN/Creatinine Ratio 11.8 (10.0-20.0) Serum Glucose 93 mg/dL (74-106) Calcium Level 10.3 mg/dL (8.7-10.4) Magnesium Level 2.0 mg/dL (1.6-2.6) Total Bilirubin 0.2 mg/dL (0.2-1.0) Aspartate Amino Transferase (AST) 22 U/L (13-40) Alanine Aminotransferase (ALT) 19 U/L (7-40) Alkaline Phosphatase 97 U/L (46-116) Total Protein 7.6 g/dL (5.7-8.2) Albumin 4.2 g/dL (3.2-4.8) Influenza Type A Antigen Negative (Negative) Influenza Type B Antigen Negative (Negative) SARS-CoV-2 Antigen (Rapid) Negative (NEGATIVE) Urine Color Light-yellow (Yellow) Urine Clarity Clear (Clear) Urine pH 7.0 (5.0-9.0) Urine Specific [place] 1.012 (1.001-1.035) Urine Protein Negative (Negative) Urine Ketones Negative (Negative) Urine Blood Negative /uL (Negative) Urine Nitrite Negative (Negative) Urine Bilirubin Negative (Negative) Urine Urobilinogen 2 mg/dL (Negative) Urine Leukocyte Esterase Negative /uL (Negative) Urine RBC 1 /hpf (0 - 4) Urine Microscopic WBC < 1 /HPF (0-5) Urine Squamous Epithelial Cells Few /hpf (<5) Urine Bacteria None seen /hpf (None Seen) Urine Glucose Normal mg/dL (Normal) Other Laboratory Tests 09/29/24 11:17 Brief Hx & Hospital Course: A 39-year-old female with a past medical history of hydrocephalus s/p brain surgery, schizophrenia, depression, anxiety, and morbid obesity presented to the ED for evaluation of cough, congestion, and shortness of breath over the past few days. On arrival, the patient had an O2 saturation of 88% on room air and was subsequently started on supplemental oxygen. Imaging revealed cardiomegaly with pulmonary congestion and edema, raising suspicion for possible pneumonia. Empiric antibiotic therapy with ceftriaxone and azithromycin was initiated, along with other supportive measures. The patient was also counseled on weight management, and seizure prophylaxis was addressed. ECHO was normal. The patient is being discharged on home oxygen therapy and requires close follow-up with a slice plug cutter operator helper to further evaluate for obesity hypoventilation syndrome and sleep apnea. Additional recommendations include continuing prescribed medications and ensuring compliance with weight-loss interventions. Follow-up with her primary care provider is advised for ongoing management of chronic conditions, and further evaluation of cardiopulmonary function is planned. General Appearance: Alert, Oriented X3, Cooperative, mild distress HEENT: Atraumatic, PERRLA, EOMI, Mucous membr. moist/pink Respiratory: Other (Diminished lung sounds) Cardiovascular: Regular rate, Normal S1, Normal S2 Abdominal: Normal bowel sounds, Soft, No tenderness, No hepatospenomegaly Extremities: No clubbing, No cyanosis, No edema, Normal pulses Skin: No rashes, No breakdown, No significant lesion Neuro: Normal speech Psych/Mental Status: Mental status NL Case discussed with Dr Ma Time spent on care 23 min Operations or Procedures EXAM: Two-dimensional and M-mode echocardiogram with Doppler and color Doppler. Blood Pressure: 113/73 mmHg INDICATION Check RVSP RISK FACTORS Height: 60, Weight: 225 DIMENSIONS LVDd 4.1 (3.8-5.7cm) LA (2D) 3.7 (1.9-4.0cm) Aortic Root 2.9 (2.0- 3.7cm) LVDs 2.9 (2.5-4.0cm) LA (MM) (1.9-4.0cm) Aortic Cusp Exc 1.5 (1.5- 2.0cm) EF (%) 55.0 (55-70%) Rt. Atrium (1.9-4.0cm) Asc. Aorta cm IVSd 0.9 (0.7-1.1cm) RV (D) (1.8-2.4cm) PWd 1.1 (0.7-1.1cm) Mitral Valve Mitral Mitral Stenosis E wave 0.67m/s MV Mean GR. mmHg A wave 0.57m/s MV Peak GR. mmHg E/A ratio 1.2 2D MVA cm2 DECEL Time 191ms PRESS 1/2 Time 69ms IVRT ms Dop MVA 3.19cm2 Aortic Valve Aortic Valve Aortic Stenosis V1 1.15m/s AO Mean GR. 6mmHg V2 1.64m/s AO Peak GR. 11mmHg LVOT Diameter 1.9 (1.8-2.4cm) Doppler CLARA 1.99cm2 Pulmonic Valve V2 1.10m/s Tricuspid Valve RVSP 3mmHg Conclusion Sinus rhythm. Normal chamber sizes. The aortic valve is normal. The mitral and tricuspid are within normal limits. The pulmonic valve is normal. EF of 55-60% with normal RV function. Mild TR. No pericardial effusion masses or vegetations. EXAM: XR Chest, 1 View CLINICAL INDICATION: sob TECHNIQUE: Frontal view of the chest. COMPARISON: None FINDINGS: LUNGS AND PLEURAL SPACES: See below. HEART: Cardiomegaly with pulmonary congestion and edema. Superimposed pneumonia cannot be excluded. MEDIASTINUM: Unremarkable. Normal mediastinal contour. BONES/JOINTS: Unremarkable. No acute fracture. OTHER FINDINGS: . IMPRESSION: Cardiomegaly with pulmonary congestion and edema. Superimposed pneumonia cannot be excluded Condition at Discharge: Stable Final Diagnosis/Problems List # acute respiratory failure with hypoxemia # possible pneumonia gram neg/ gram pos #cardiomegaly #pulmonary congestion #possible obesity hypoventilation syndrome #possible sleep apnea # morbid obesity # schizophrenia # depression # anxiety # hx seizures Discharge Disposition: Home with Health Services Discharge Instruct/Medications Diet: Consistent carbohydrate, Cardiac 2g Na,low cholest Activity: Light activity Follow Up/Referral: dc clinic, please schedule appt with Dr Dykes before DC Medications: see prescription Discharge Statement: "Patient was advised to return to the ER or call 911 if any headaches, dizziness, shortness of breath, chest pain, abdominal pain, bleeding, fevers, or worsening of medical condition. Patient was counseled about treatment plan, medications, possible side effects, patientverbalized understanding. All questions were answered to the best of my ability. This discharge took greater then 30 minutes in planning, reviewing documentation, counseling the patient, and discussing with other team members." ASSESSMENT ASSESSMENT Assessment acute respiratory failure pneumonia Date of Service: Sep 30, 2024 Billing Provider: ELIZABETH MA MD Common Visit Codes: [id number] INP/OBS CARE(HIGH) LAMINE MENA RESIDENT Sep 30, 2024 15:42 ELIZABETH MA MD Oct 05, 2024 09:18
[2024-09-30] MEDS: FUROSEMIDE 20 MG/2 ML VIAL IV SCH (18:26)
[2024-10-01] VITALS (18 sets, daily range): BP systolic 103–138; BP diastolic 62–84; PULSE 74–127; RESP 16–20; TEMP 97.4–99.6; O2SAT 91–99
--- NOTE | 2024-10-01 08:22 | DVH ---
EXAM: XR Chest, 1 View CLINICAL INDICATION: dyspnea TECHNIQUE: Frontal view of the chest. COMPARISON: XY CHEST PORTABLE on DOS: 09/28/24 FINDINGS: LUNGS AND PLEURAL SPACES: Pulmonary congestion and edema. Pneumonia cannot be excluded. No pneumot horax. HEART: Unremarkable. No cardiomegaly. MEDIASTINUM: Unremarkable. Normal mediastinal contour. BONES/JOINTS: Unremarkable. No acute fracture. OTHER FINDINGS: . . IMPRESSION: Pulmonary congestion and edema. Pneumonia cannot be excluded.
[2024-10-01 10:04] LABS: Base Excess 6.2 mmol/L (-2.0-3.0)
[2024-10-01 11:16] LABS: Sodium 139 mmol/L (136-145)
[2024-10-01 11:17] LABS: Anion Gap 8 (5-15)
[2024-10-01 11:18] LABS: Calcium 10.1 mg/dL (8.7-10.4)
[2024-10-01 11:22] LABS: BUN/Creatinine Ratio 23.1 (10.0-20.0); Blood Urea Nitrogen 18 mg/dL (9-23); Carbon Dioxide 34 mmol/L (20-31); Chloride 97 mmol/L (98-107)
[2024-10-01 11:29] LABS: Glucose 131 mg/dL (74-106)
[2024-10-01 14:33] LABS: Opiate Scree,Urine Neg (NEGATIVE)
[2024-10-01 14:34] LABS: Amphetamine Screen, Urine Neg (NEGATIVE); Barbiturate Scree,Urine Neg (NEGATIVE); Benzodiazephine Screen, Urine Neg (NEGATIVE); Cannabinoid Screen, Urine Neg (NEGATIVE); Cocaine Screen, Urine Neg (NEGATIVE); Phencyclidine Screen, Urine Neg (NEGATIVE)
--- NOTE | 2024-10-01 15:21 | DVH ---
EXAM: CT HEAD WITHOUT CONTRAST HISTORY: AMS COMPARISON: None TECHNIQUE: Axial images of the head were obtained and reformatted in coronal and sagittal planes. All CT scans at this medical facility are performed using dose modulation techniques as appropriate t o a performed exam including the following: Automated exposure control was utilized; adjustment of th e MA and/or KV according to patient size; and use of iterative reconstruction technique. CT Dose: CTDI volume is 58 mGy. Dose-length product is 1029 mGy*cm FINDINGS: There is a ventricular shunt catheter with a left parietal approach with the tip in the frontal horn of the left lateral ventricle along the septum pellucidum. The left ventricle is small in caliber. Th ere is asymmetric prominence of the occipital horn of the right lateral ventricle. There is no signif icant hydrocephalus. There is no extra-axial fluid collection. There is no evidence of acute intracranial hemorrhage, mass, mass effect midline shift. Pena-white ma tter differentiation is maintained. The visualized paranasal sinuses and mastoid air cells are clear. The calvarium is intact. IMPRESSION: 1. No acute intracranial process. 2. Ventricular shunt catheter with the tip in the frontal horn of the left lateral ventricle. The lef t ventricle is small in caliber. There is asymmetric prominence of the occipital horn of the right la teral ventricle. There is no significant hydrocephalus. Clinical correlation for proper shunt functi oning is recommended as well as comparison with any available prior CT studies to evaluate for change in ventricular size. HS:Y
--- NOTE | 2024-10-01 15:29 | DVH ---
EXAM: CT CHEST WITHOUT CONTRAST History: ARF Comparison Study: CT HEAD WITHOUT CONTRAST on DOS: 10/01/24 TECHNIQUE: Multidetector CT of the chest was performed. Imaging was performed without IV contrast. Ax ial, coronal, and sagittal multiplanar reformats were obtained from the axial data set by the technol ogradha. Radiation Dose : CTDI vol 28.69 mGy, DLP 952.65 mGy*cm. Findings: Lungs: Left lower lobe round atelectasis. Pleura: Trace left pleural effusion. Heart/Great vessels: The visualized heart is unremarkable. No cardiomegaly or pericardial effusion. Mediastinum: Unremarkable Soft tissues/Bones: Unremarkable Cholelithiasis. The partially visualized upper abdomen is within normal limits. Impression: 1. Trace left pleural effusion with adjacent round atelectasis.
--- NOTE | 2024-10-01 18:59 | DVHPNRES ---
Progress Note Date Seen: Oct 01, 2024 Resident Creating Document: LAMINE MENA RESIDENT Has the PT tested + for MRSA If YES, has PT been informed?: No Medical Necessity Reason Pt with a Central, PICC or Fol: No Subjective Review of Systems A 39-year-old female with past medical history of hydrocephalus s/p brain surgery, schizophrenia, depression, anxiety, and obesity who presented to ED due to having cough for the past few days associated with congestion, shortness of breath for which prompted her ED visit. Upon arrival the patient's O2 saturation noted in 88% RA for which the patient was placed on O2 supplement. She denies fevers, chills, nausea, vomiting, abdominal pain, difficulty in b reathing or other acute symptoms Objective vital signs Vital Sign Date Time Temp Pulse Resp B/P (MAP) Pulse Ox O2 Delivery O2 Flow Rate FiO2 10/01/24 17:43 138/83 10/01/24 16:40 98.3 108 18 92 98.3 10/01/24 12:14 Room Air* 0 21 Total Intake and Output 09/30/24 09/30/24 10/01/24 15:00 23:00 07:00 Intake Total 50 ml 0 ml 500 ml Balance 50 ml 0 ml 500 ml medications Current Medications Medications Dose Ordered Sig/Rose Mary Route Start Time Stop Time Status Last Admin Dose Admin Ipratropium Straughn 0.5 mg Q4HPRN PRN NEB 09/27/24 15:00 Ipratropium Straughn 0.5 mg Q6HR NEB 09/27/24 18:00 10/01/24 12:14 0.5 MG Ondansetron HCl 4 mg Q4HP PRN IV 09/27/24 15:00 Enoxaparin Sodium 40 mg DAILY SC 09/28/24 10:00 10/01/24 10:09 40 MG Morphine Sulfate 2 mg Q4HPRN PRN IV 09/27/24 15:00 Ceftriaxone Sodium 50 ml @ 100 mls/hr DAILY@09 IV 09/28/24 09:00 10/01/24 10:09 100 MLS/HR Azithromycin 250 ml @ 125 mls/hr DAILY IV 09/28/24 10:00 10/01/24 10:00 125 MLS/HR Acetaminophen/ Hydrocodone Bitart 1 tab Q4HP PRN PO 09/27/24 15:00 Acetaminophen 650 mg Q6HP PRN PO 09/27/24 15:00 Albuterol 2.5 mg Q4HPRN PRN NEB 09/27/24 15:00 Albuterol 2.5 mg Q6HR NEB 09/27/24 18:00 10/01/24 12:14 2.5 MG Levetiracetam 500 mg BID PO 09/29/24 22:00 10/01/24 10:09 500 MG Divalproex Sodium 250 mg BID PO 09/29/24 22:00 10/01/24 10:09 250 MG Furosemide 20 mg BIDD IV 09/30/24 18:00 10/01/24 17:43 20 MG Examination General Appearance: Alert, Oriented X3, Cooperative, mild distress HEENT: Atraumatic, PERRLA, EOMI, Mucous membr. moist/pink Respiratory: Other (Diminished lung sounds) Cardiovascular: Regular rate, Normal S1, Normal S2 Abdominal: Normal bowel sounds, Soft, No tenderness, No hepatospenomegaly Extremities: No clubbing, No cyanosis, No edema, Normal pulses Skin: No rashes, No breakdown, No significant lesion Neuro: Normal speech Psych/Mental Status: Mental status NL laboratory and microbiology Laboratory Tests 10/01/24 10:38 09/29/24 11:17 Test 10/01/24 10:38 Range/Units Serum Glucose 131 H 74-106 mg/dL Microbiology Date/Time Source Procedure Growth Status 09/27/24 13:21 Blood Blood Culture - Preliminary NO GROWTH AFTER 72 HOURS OF INCUBATION. Resulted Problem List/Assessment/Plan Problem List/Assessment/Plan # acute respiratory failure with hypoxemia resolving # possible pneumonia gram neg/ gram pos resolving #cardiomegaly #pulmonary congestion #possible obesity hypoventilation syndrome #possible sleep apnea #Trace left pleural effusion with adjacent round atelectasis. Empiric antibiotic ceftriaxone and azithromycin Med neb treatment Blood and sputum culture pending Chest x-ray : Cardiomegaly with pulmonary congestion and edema. Superimposed pneumonia cannot be excluded. COVID and influenza neg ECHO ordered to check RVSP pending lecture Lasix IV Patient is a chronic CO2 retainer: please keep O2 between 88-92%: probably the cause of the ARF is sleep apnea vs obesity hypoventilation syndrome BIPAP at night parameters 06/06 Patient tolerated weaning off between 12 pm to 6 pm # morbid obesity Counseled on diet and weight loss # schizophrenia # depression # anxiety Patient was very drowsy with antipsychotics, patient has mostly negative symptoms so were DC with improvement in the awareness # hx seizures # s/p brain surgery for hydrocephalus Seizures precaution Keppra and valproic acid Head ct scan: Ventricular shunt catheter with the tip in the frontal horn of the left lateral ventricle. The left ventricle is small in caliber. There is asymmetric prominence of the occipital horn of the right lateral ventricle. There is no significant hydrocephalus. DVT prophylaxis Case discussed with Dr Griggs Time spent on care 23 min Plan discussed with: Patient, Other (rn) My Orders My Orders Orders - LAMINE MENA RESIDENT Procedure Category Date Status Time Insert/Manage Urinary STACEY 10/01/24 In Process Catheter 09:31 Abg W/ Co-Ox RT 10/01/24 Logged 09:44 Communication Order ORDERS 10/01/24 Transmitted 11:[address] 10/01/24 Resulted 12:[address] 10/01/24 Resulted 12:16 Bipap/Cpap For Sleep RT 10/01/24 Logged Apnea 18:50 Transfer Orders XFER 10/01/24 Transmitted 18:52 Date of Service: Oct 01, 2024 Billing Provider: ELIZABETH GRIGGS MD Common Visit Codes: [id number] INP/OBS CARE(MOD) LAMINE MENA RESIDENT Oct 01, 2024 18:59 ELIZABETH GRIGGS MD Oct 05, 2024 09:18
[2024-10-02] VITALS (14 sets, daily range): BP systolic 107–127; BP diastolic 68–87; PULSE 75–112; RESP 17–20; TEMP 97.6–98.7; O2SAT 92–99
[2024-10-02 07:07] LABS: Chloride 98 mmol/L (98-107); Sodium 139 mmol/L (136-145)
[2024-10-02 07:08] LABS: Anion Gap 10 (5-15); Carbon Dioxide 31 mmol/L (20-31); Potassium 3.3 mmol/L (3.5-5.1)
[2024-10-02 07:13] LABS: BUN/Creatinine Ratio 25.3 (10.0-20.0); Blood Urea Nitrogen 19 mg/dL (9-23); Glucose 90 mg/dL (74-106)
[2024-10-02] MEDS: POTASSIUM CHL 20MEQ/100ML 100 ML IV SCH (10:55)
[2024-10-02] MEDS: POTASSIUM EFFERVESENT TAB 25 MEQ PO ONE (13:00)
--- NOTE | 2024-10-02 13:38 | DVHDSRES ---
Discharge Summary Date of Admission Resident Creating Document: LAMINE MENA RESIDENT Sep 27, 2024 at 14:39 Date of Discharge: Sep 30, 2024 Admitting Diagnosis acute respiratory failure Labs/Diagnostic Data: Laboratory Results Test 10/02/24 05:30 10/01/24 13:45 10/01/24 09:53 09/30/24 09:42 Sodium Level 139 mmol/L (136-145) Potassium Level 3.3 mmol/L (3.5-5.1) Chloride Level 98 mmol/L (98-107) Carbon Dioxide Level 31 mmol/L (20-31) Anion Gap 10 (5-15) Blood Urea Nitrogen 19 mg/dL (9-23) Creatinine 0.75 mg/dL (0.550-1.02) Glomerular Filtration Rate Calc 105 mL/min (>90) BUN/Creatinine Ratio 25.3 (10.0-20.0) Serum Glucose 90 mg/dL (74-106) Calcium Level 10.0 mg/dL (8.7-10.4) Urine Test Negative (Negative) Urine Opiates Screen Neg (NEGATIVE) Urine Fentanyl Screen Neg (NEGATIVE) Urine Barbiturates Screen Neg (NEGATIVE) Urine Phencyclidine Screen Neg (NEGATIVE) Urine Amphetamines Screen Neg (NEGATIVE) Urine Benzodiazepines Screen Neg (NEGATIVE) Urine Cocaine Screen Neg (NEGATIVE) Urine Cannabinoids Screen Neg (NEGATIVE) Blood Gas Specimen Type Arterial Blood Gas Sample Site Right radial Blood Gas Patient Temperature 37.0 Arterial Blood Date Drawn [id number] Arterial Blood pH 7.395 (7.350-7.450) Arterial Blood Partial Pressure CO2 54.9 mmHg (32.0-45.0) Arterial Blood Partial Pressure O2 72.0 mmHg (83.0-108.0) Arterial Blood HCO3 32.9 mmol/L (21.0-28.0) Arterial Blood Oxygen Saturation 93.3 % (94.0-98.0) Arterial Blood Base Excess 6.2 mmol/L (-2.0-3.0) Arterial Blood Oxyhemoglobin 91.9 % (94.0-98.0) Arterial Blood Carboxyhemoglobin 1.1 % (0.5-1.5) Arterial Blood Methemoglobin 0.4 % (0.0-1.5) Freddy Test Yes Blood Gas Total Hemoglobin 15.70 g/dL (12.0-16.0) Blood Gas Modality Nasal cannula FiO2 % 24.0 Blood Gas Critical Value Read Back Yes Blood Gas Notified Whom Jabier giles. Blood Gas Notified Time [id number] Blood Gas Notified By Jan photo stylist Test 09/29/24 11:17 09/27/24 16:58 09/27/24 00:10 White Blood Count 6.3 10^3/uL (4.4-10.8) Red Blood Count 5.36 10^6/uL (4.0-5.20) Hemoglobin 14.6 g/dL (12.2-16.2) Hematocrit 44.6 % (36.0-46.0) Mean Corpuscular Volume 83.2 fL (80.0-100.0) Mean Corpuscular Hemoglobin 27.2 pg (28.0-32.0) Mean Corpuscular Hemoglobin Concent 32.8 g/dL (32.0-36.0) Red Cell Distribution Width 16.4 % (11.8-14.3) Platelet Count 192 10^3/uL (140-450) Mean Platelet Volume 8.3 fL (6.9-10.8) Neutrophils (%) (Auto) 58.2 % (37.0-80.0) Lymphocytes (%) (Auto) 27.9 % (10.0-50.0) Monocytes (%) (Auto) 12.4 % (0.0-12.0) Eosinophils (%) (Auto) 1.1 % (0.0-7.0) Basophils (%) (Auto) 0.4 % (0.0-2.0) Neutrophils # (Auto) 3.7 10 ^3/uL (1.6-8.6) Lymphocytes # (Auto) 1.8 10 ^3/uL (0.4-5.4) Monocytes # (Auto) 0.8 10 ^3/uL (0-1.3) Eosinophils # (Auto) 0.1 10 ^3/uL (0-0.8) Basophils # (Auto) 0 10 ^3/uL (0-0.2) Nucleated Red Blood Cells 0.1 % Magnesium Level 2.0 mg/dL (1.6-2.6) Total Bilirubin 0.2 mg/dL (0.2-1.0) Aspartate Amino Transferase (AST) 22 U/L (13-40) Alanine Aminotransferase (ALT) 19 U/L (7-40) Alkaline Phosphatase 97 U/L (46-116) Total Protein 7.6 g/dL (5.7-8.2) Albumin 4.2 g/dL (3.2-4.8) Influenza Type A Antigen Negative (Negative) Influenza Type B Antigen Negative (Negative) SARS-CoV-2 Antigen (Rapid) Negative (NEGATIVE) Urine Color Light-yellow (Yellow) Urine Clarity Clear (Clear) Urine pH 7.0 (5.0-9.0) Urine Specific [place] 1.012 (1.001-1.035) Urine Protein Negative (Negative) Urine Ketones Negative (Negative) Urine Blood Negative /uL (Negative) Urine Nitrite Negative (Negative) Urine Bilirubin Negative (Negative) Urine Urobilinogen 2 mg/dL (Negative) Urine Leukocyte Esterase Negative /uL (Negative) Urine RBC 1 /hpf (0 - 4) Urine Microscopic WBC < 1 /HPF (0-5) Urine Squamous Epithelial Cells Few /hpf (<5) Urine Bacteria None seen /hpf (None Seen) Urine Glucose Normal mg/dL (Normal) Other Laboratory Tests 10/02/24 05:30 09/29/24 11:17 Brief Hx & Hospital Course: A 39-year-old female with a past medical history of hydrocephalus s/p brain surgery, schizophrenia, depression, anxiety, and morbid obesity presented to the ED for evaluation of cough, congestion, and shortness of breath over the past few days. On arrival, the patient had an O2 saturation of 88% on room air and was subsequently started on supplemental oxygen, which can be weaned off. Imaging revealed cardiomegaly with pulmonary congestion and edema, raising suspicion for possible pneumonia. Empiric antibiotic therapy with ceftriaxone and azithromycin was initiated, along with other supportive measures. The patient was also counseled on weight management, and seizure prophylaxis was addressed. ECHO was normal. Olanzapine was DC due to extreme drowsiness The patient is being discharged y and requires close follow-up with a floor coverer apprentice to further evaluate for obesity hypoventilation syndrome and sleep apnea. Additional recommendations include continuing prescribed medications and ensuring compliance with weight-loss interventions. Follow-up with her primary care provider is advised for ongoing management of chronic conditions, and further evaluation of cardiopulmonary function is planned. General Appearance: Alert, Oriented X3, Cooperative, mild distress HEENT: Atraumatic, PERRLA, EOMI, Mucous membr. moist/pink Respiratory: Other (Diminished lung sounds) Cardiovascular: Regular rate, Normal S1, Normal S2 Abdominal: Normal bowel sounds, Soft, No tenderness, No hepatospenomegaly Extremities: No clubbing, No cyanosis, No edema, Normal pulses Skin: No rashes, No breakdown, No significant lesion Neuro: Normal speech Psych/Mental Status: Mental status NL Case discussed with Dr aM Time spent on care 23 min Operations or Procedures EXAM: Two-dimensional and M-mode echocardiogram with Doppler and color Doppler. Blood Pressure: 113/73 mmHg INDICATION Check RVSP RISK FACTORS Height: 60, Weight: 225 DIMENSIONS LVDd 4.1 (3.8-5.7cm) LA (2D) 3.7 (1.9-4.0cm) Aortic Root 2.9 (2.0- 3.7cm) LVDs 2.9 (2.5-4.0cm) LA (MM) (1.9-4.0cm) Aortic Cusp Exc 1.5 (1.5- 2.0cm) EF (%) 55.0 (55-70%) Rt. Atrium (1.9-4.0cm) Asc. Aorta cm IVSd 0.9 (0.7-1.1cm) RV (D) (1.8-2.4cm) PWd 1.1 (0.7-1.1cm) Mitral Valve Mitral Mitral Stenosis E wave 0.67m/s MV Mean GR. mmHg A wave 0.57m/s MV Peak GR. mmHg E/A ratio 1.2 2D MVA cm2 DECEL Time 191ms PRESS 1/2 Time 69ms IVRT ms Dop MVA 3.19cm2 Aortic Valve Aortic Valve Aortic Stenosis V1 1.15m/s AO Mean GR. 6mmHg V2 1.64m/s AO Peak GR. 11mmHg LVOT Diameter 1.9 (1.8-2.4cm) Doppler CLARA 1.99cm2 Pulmonic Valve V2 1.10m/s Tricuspid Valve RVSP 3mmHg Conclusion Sinus rhythm. Normal chamber sizes. The aortic valve is normal. The mitral and tricuspid are within normal limits. The pulmonic valve is normal. EF of 55-60% with normal RV function. Mild TR. No pericardial effusion masses or vegetations. EXAM: XR Chest, 1 View CLINICAL INDICATION: sob TECHNIQUE: Frontal view of the chest. COMPARISON: None FINDINGS: LUNGS AND PLEURAL SPACES: See below. HEART: Cardiomegaly with pulmonary congestion and edema. Superimposed pneumonia cannot be excluded. MEDIASTINUM: Unremarkable. Normal mediastinal contour. BONES/JOINTS: Unremarkable. No acute fracture. OTHER FINDINGS: . IMPRESSION: Cardiomegaly with pulmonary congestion and edema. Superimposed pneumonia cannot be excluded Condition at Discharge: Stable Final Diagnosis/Problems List # acute respiratory failure with hypoxemia resolved # possible pneumonia gram neg/ gram pos #cardiomegaly#pulmonary congestion #possible obesity hypoventilation syndrome #possible sleep apnea# morbid obesity# schizophrenia# depression# anxiety# hx seizures Discharge Disposition: Home Discharge Instruct/Medications Diet: Consistent carbohydrate, Cardiac 2g Na,low cholest Activity: Light activity Follow Up/Referral: dc clinic, please schedule appt with Dr Dykes before DC Medications: see prescription Discharge Statement: "Patient was advised to return to the ER or call 911 if any headaches, dizziness, shortness of breath, chest pain, abdominal pain, bleeding, fevers, or worsening of medical condition. Patient was counseled about treatment plan, medications, possible side effects, patientverbalized understanding. All questions were answered to the best of my ability. This discharge took greater then 30 minutes in planning, reviewing documentation, counseling the patient, and discussing with other team members." ASSESSMENT ASSESSMENT Assessment # acute respiratory failure with hypoxemia# possible pneumonia gram neg/ gram pos #cardiomegaly#pulmonary congestion #possible obesity hypoventilation syndrome #possible sleep apnea# morbid obesity# schizophrenia# depression# anxiety# hx seizures Date of Service: Oct 02, 2024 Billing Provider: ELIZABETH MA MD Common Visit Codes: 62036-LPN/OBS DISCH DAY >30min LAMINE MENA RESIDENT Oct 02, 2024 13:38 ELIZABETH MA MD Oct 05, 2024 09:20
[2024-10-02] MEDS ORDERED: levETIRAcetam 500 MG/5ML ORAL SOLN UD PO SCH (22:00)
[2024-10-02] MEDS ORDERED: FUROSEMIDE 20 MG TAB PO SCH (22:00)
[2024-10-02] MEDS ORDERED: VALPROIC ACID 250 MG/5 ML ORAL SOLN PO SCH (22:00)
== END 2024-10-02 18:00 | disposition home or self-care (01) | DRG 137 ==
LOC: ER 08:06 → OVERFLOW 14:39 → ER 14:43 → EAST 21:20 → TELE-E-ADS 10-01 19:08
PROVIDERS: ADMIT Student in an Organized Health Care Education/Training Program; ATTEND Student in an Organized Health Care Education/Training Program
DX: J15.69 Pneumonia due to other Gram-negative bacteria (principal); J96.01 Acute respiratory failure with hypoxia; F20.1 Disorganized schizophrenia; Z68.41 Body mass index [BMI] 40.0-44.9, adult; J15.9 Unspecified bacterial pneumonia; E66.01 Morbid (severe) obesity due to excess calories; Z20.822 Contact with and (suspected) exposure to COVID-19; F32.A Depression, unspecified; F41.1 Generalized anxiety disorder; G40.909 Epilepsy, unspecified, not intractable, without status epilepticus
CPT/HCPCS: 36415; 36600; 70450; 71045; 71046; 71250; 80048; 80053; 80307; 81001; 81025; 82805; 83735; 85025; 87040; 87426; 87804; 93306; 94640; 94660; G0378; J3480; Q0161

== ENCOUNTER 2024-10-31 06:25 | Emergency (ER) | payer MEDICAID ==
[~2024-10-31] VITALS: Ht 144.8 cm; Wt 95.8 kg
[~2024-10-31 06:25] MED LIST changes: -ACET500T58 PO; -CEPH-510 PO; +CHLO200T8 PO; +FURO20TA3 PO; -IBUP-1455 PO; +LEVE5SOL PO; +LEVO750T40 PO; +OLAN1TAB75 PO; +PSEU-295 PO; +VALP250S19 PO; +VENL1TAB99 PO
--- NOTE | 2024-10-31 07:03 | ED.PDOC ---
GI ASSESSMENT HPI Comments 39-year-old female with PMHx Schizophrenia, Hydrocephalus brought in by [facility] staff presents with a chief complaint of abdominal pain x onset this morning. Patient states that her pain is localized to her epigastric region, nonradiating, describes as aching, and rates her pain a 5/10. Patients field care coordinator reports that patient is known to exaggerate and make-up symptoms. Patient is at her normal mental baseline, but is reserved when answering questions. Patient states that she is nervous. Patient also reports dysuria and dark-tinge urine. No other symptoms or modifying factors present at this time. Chief Complaint: Abdominal Pain Time Seen by MD: 06:40 Primary Care Provider: ? Reviewed Notes: Medications, Allergies Allergies: Coded Allergies: Carbamazepine (Unverified Allergy, Severe, 12/28/14) Home Meds Active Scripts Levofloxacin Hemihydrate (LEVOFLOXACIN) 750 Mg Tab, 750 MG PO DAILY for 3 Days, #3 TAB Prov:LAMINE MENA RESIDENT 09/30/24 Reported Medications Pseudoephedrine Hcl (Sudogest) 30 Mg Tab, 30 MG PO UD, TAB 09/28/24 Olanzapine (OLANZAPINE) 20 Mg Tab, 1 TAB PO QPM, #30 TAB 1 Refill 09/28/24 Venlafaxine Hydrochloride (Venlafaxine Hcl) 75 Mg Tab, 75 MG PO DAILY, TAB 09/28/24 Valproate Sodium (Valproic Acid) 250 Mg/5 Ml Syp, 250 MG PO BID, SYP 09/28/24 Levetiracetam (Levetiracetam) 100 Mg/Ml Frances, 100 MG PO BID, ML 09/28/24 Furosemide (Furosemide) 20 Mg Tab, 20 MG PO BID, TAB 09/28/24 Chlorpromazine HCl (Chlorpromazine Hydrochlor) 200 Mg Tab, 200 MG PO BID, TAB 09/28/24 Information Source: Patient Mode of Arrival: Ambulatory Timing: Hours Duration: Since onset Prehospital treatment: None Quality: Aching Vomitus: None Stool: Normal Severity: Moderate Recent: None Recent Hx of: None Pain Location: Epigastric Associated sign and symptoms: Abdominal Pain Past Medical History PAST MEDICAL HISTORY: Anxiety, Depression, Schizophrenia, Seizures Surgical History: Denies all surgeries DIPLOMATIC COURIER History: No Pertinent DIPLOMATIC COURIER History Family History Family History: Reviewed,noncontributory to illness, Unknown Social History Smoker: Non-Smoker Alcohol: Denies ETOH Use Drugs: Denies Drug Use Lives In: Home Constitutional: denies: chills, diaphoresis, fatigue, fever, malaise, sweats, weakness, others EENTM: denies: blurred vision, double vision, ear bleeding, ear discharge, ear drainage, ear pain, ear ringing, eye pain, eye redness, hearing loss, mouth pain, mouth swelling, nasal discharge, nose bleeding, nose congestion, nose pain, photophobia, tearing, throat pain, throat swelling, voice changes, others Respiratory: denies: cough, hemoptysis, orthopnea, SOB at rest, shortness of breath, SOB with excertion, stridor, wheezing, others Cardiovascular: denies: chest pain, dizzy spells, diaphoresis, Dyspnea on exertion, edema, irregular heart beat, left arm pain, lightheadedness, palpitations, PND, syncope, others Gastrointestinal: reports: abdominal pain; denies: abdomen distended, blood streaked bowels, constipated, diarrhea, dysphagia, difficulty swallowing, hematemesis, melena, nausea, poor appetite, poor fluid intake, rectal bleeding, rectal pain, vomiting, others Genitourinary: reports: dysuria; denies: abnormal vagina bleeding, burning, dyspareunia, flank pain, frequency, hematuria, incontinence, pain, , vagina discharge, urgency, others Neurological: denies: dizziness, fainting, headache, left sided numbness, left sided weakness, numbness, paresthesia, pre-existing deficit, right sided numbness, right sided weakness, seizure, speech problems, tingling, tremors, weakness, others Musculoskeletal: denies: back pain, gout, joint pain, joint swelling, muscle pain, muscle stiffness, neck pain, others Integumetry: denies: bruises, change in color, change in hair/nails, dryness, laceration, lesions, lumps, rash, wounds, others Allergic/Immunocompromised: denies: Difficulty Healing, Frequent Infections, Hives, Itching, others Hematologic/Lymphatic: denies: anemia, blood clots, easy bleeding, easy bruising, swollen glands, others Endocrine: denies: excessive hunger, excessive sweating, excessive thirst, excessive urination, flushing, intolerance to cold, intolerance to heat, unexplained weight gain, unexplained weight loss, others Psychiatric: denies: anxiety, bipolar disorder, depression, hopeless, panic disorder, schizophrenia, sleepless, suicidal, others All Other Systems: Reviewed and Negative Physical Exam General Appearance: No Apparent Distress, Normal HEENT: Normal ENT Inspection, Pharynx Normal, TMs Normal Neck: Full Range of Motion, Non-Tender, Normal, Normal Inspection Respiratory: Chest Non-Tender, Lungs Clear, No Accessory Muscle Use, No Respiratory Distress, Normal Breath Sounds Cardiovascular: No Edema, No JVD, No Murmur, No Gallop, Normal Peripheral Pulses, Regular Rate/Rhythm Breast Exam: Deferred Gastrointestinal: Epigastric, No Organomegaly, No Pulsatile Mass, Normal Bowel Sounds, Soft, Tenderness Genitalia: Deferred Pelvic: Deferred Rectal: Deferred Extremities: No calf tenderness, Normal capillary refill, Normal inspection, Normal range of motion, Non-tender, No pedal edema Musculoskeletal : Apperance: Normal Neurologic: Other (NORMAL MENTAL BASELINE) Cerebellar Function: Normal Reflexes: Normal Skin: Dry, Normal Color, Warm Lymphatic: No Adenopathy Was a procedure done? Was a procedure done?: No GI differential Dx Differential Diagnosis: Bowel Obstruction, Constipation, Gastritis/PUD, Pancreatitis, UTI X-Ray, Labs, Meds, VS Vital Signs Date Time Temp Pulse Resp B/P (MAP) Pulse Ox O2 Delivery O2 Flow Rate FiO2 10/31/24 07:50 100 20 96 Room Air 10/31/24 07:50 100 20 118/73 (88) 96 10/31/24 06:47 98.3 113 15 131/81 (98) 96 Lab Test 10/31/24 07:15 10/31/24 06:45 Range/Units White Blood Count 5.9 4.4-10.8 10^3/uL Red Blood Count 5.56 H 4.0-5.20 10^6/uL Hemoglobin 15.0 12.2-16.2 g/dL Hematocrit 46.7 H 36.0-46.0 % Mean Corpuscular Volume 83.9 80.0-100.0 fL Mean Corpuscular Hemoglobin 27.0 L 28.0-32.0 pg Mean Corpuscular Hemoglobin Concent 32.2 32.0-36.0 g/dL Red Cell Distribution Width 16.6 H 11.8-14.3 % Platelet Count 174 140-450 10^3/uL Mean Platelet Volume 8.6 6.9-10.8 fL Neutrophils (%) (Auto) 52.1 37.0-80.0 % Lymphocytes (%) (Auto) 35.1 10.0-50.0 % Monocytes (%) (Auto) 10.6 0.0-12.0 % Eosinophils (%) (Auto) 1.9 0.0-7.0 % Basophils (%) (Auto) 0.3 0.0-2.0 % Neutrophils # (Auto) 3.1 1.6-8.6 10 ^3/uL Lymphocytes # (Auto) 2.1 0.4-5.4 10 ^3/uL Monocytes # (Auto) 0.6 0-1.3 10 ^3/uL Eosinophils # (Auto) 0.1 0-0.8 10 ^3/uL Basophils # (Auto) 0 0-0.2 10 ^3/uL Nucleated Red Blood Cells 0.1 % Sodium Level 140 136-145 mmol/L Potassium Level 3.7 3.5-5.1 mmol/L Chloride Level 102 98-107 mmol/L Carbon Dioxide Level 28 20-31 mmol/L Anion Gap 10 5-15 Blood Urea Nitrogen 9 9-23 mg/dL Creatinine 0.96 0.550-1.02 mg/dL Glomerular Filtration Rate Calc 78 >90 mL/min BUN/Creatinine Ratio 9.4 L 10.0-20.0 Serum Glucose 118 H 74-106 mg/dL Calcium Level 9.8 8.7-10.4 mg/dL Lipase 38 12-53 U/L Urine Color Colorless Yellow Urine Clarity Turbid H Clear Urine pH 7.0 5.0-9.0 Urine Specific [place] 1.009 1.001-1.035 Urine Protein Negative Negative Urine Ketones Negative Negative Urine Blood Negative Negative /uL Urine Nitrite Negative Negative Urine Bilirubin Negative Negative Urine Urobilinogen Normal Negative mg/dL Urine Leukocyte Esterase Negative Negative /uL Urine RBC 2 0 - 4 /hpf Urine Microscopic WBC 4 0-5 /HPF Urine Squamous Epithelial Cells Few <5 /hpf Urine Bacteria Few H None Seen /hpf Urine Glucose Normal Normal mg/dL Urine Test Negative Negative 39-year-old female presents here with abdominal pain. Patient has a history of hydrocephalus status post surgery, and has a mental delay secondary to this. [facility] and is currently with her caregiver. Caregiver noted that her urine was little bit darker this morning and there was concern whether it has blood in it. Patient reports mild burning with urination at this time. On my examination she has epigastric tenderness to palpation. Lipase level has been measured which is unremarkable. At this time no evidence of UTI on examination. I will be discharging her home. Advised her to follow up with the PCP in 2-3 days and return to the ER if symptoms worsen or persist. Caregiver and patient understand and are agreeable. Time of 1ST Reevaluation: 07:10 Reevaluation 1ST: Unchanged Patient Education/Counseling: Diagnosis, Treatment, Prognosis Family Education/Counseling: Diagnosis, Treatment, Prognosis Departure 1 Departure Time of Disposition: 08:30 Impression: Primary Impression: Abdominal pain Qualified Codes: R10.9 - Unspecified abdominal pain Additional Impression: Epigastric abdominal pain Disposition: 01 HOME / SELF CARE / HOMELESS Condition: Fair Additional Instructions: Follow up with the primary care physician in 2-3 days. Return to the ER if symptoms worsen or persist. Discharged With: Self, Spindle Setter Critical Care Note Critical Care Time?: No Stability Stability form required: No Heart Score Heart Score: Heart Score Response (Comments) Value History N/A 0 EKG N/A 0 Age N/A 0 Risk Factors N/A 0 Troponin N/A 0 Total 0 I personally scribed for RONNELL CROWLEY MD ([email or web address]) on 10/31/24 at 07:03. Electronically submitted by Cornelius Saab ([email or web address]). I personally scribed for RONNELL CROWLEY MD ([email or web address]) on 10/31/24 at 07:04. Electronically submitted by Cornelius Saab ([email or web address]). I personally scribed for RONNELL CROWLEY MD ([email or web address]) on 10/31/24 at 08:50. Electronically submitted by Cornelius Saab ([email or web address]). RONNELL CROWLEY MD Oct 31, 2024 07:03
[2024-10-31 07:49] LABS: Basophils # (auto) 0 10 ^3/uL (0-0.2); Basophils % (auto) 0.3 % (0.0-2.0); Eosinophils # (auto) 0.1 10 ^3/uL (0-0.8); Eosinophils % (auto) 1.9 % (0.0-7.0); Hematocrit 46.7 % (36.0-46.0); Lymphocytes # (auto) 2.1 10 ^3/uL (0.4-5.4); Lymphocytes % (auto) 35.1 % (10.0-50.0); Mean Corpuscular Hgb Conc. 32.2 g/dL (32.0-36.0); Mean Corpuscular Volume 83.9 fL (80.0-100.0); Monocytes # (auto) 0.6 10 ^3/uL (0-1.3); Monocytes % (auto) 10.6 % (0.0-12.0); Neutrophils # (auto) 3.1 10 ^3/uL (1.6-8.6); Neutrophils % (auto) 52.1 % (37.0-80.0); Nucleated Red Blood Cells % 0.1 %; Platelet Count (auto) 174 10^3/uL (140-450); Red Blood Cells 5.56 10^6/uL (4.0-5.20); Red Cell Distribution Width 16.6 % (11.8-14.3); White Blood Cell 5.9 10^3/uL (4.4-10.8)
[2024-10-31 07:57] LABS: Chloride 102 mmol/L (98-107); Potassium 3.7 mmol/L (3.5-5.1); Sodium 140 mmol/L (136-145)
[2024-10-31 07:58] LABS: Anion Gap 10 (5-15); Carbon Dioxide 28 mmol/L (20-31)
[2024-10-31 07:59] LABS: Calcium 9.8 mg/dL (8.7-10.4)
[2024-10-31 08:02] LABS: Urine Bacteria FEW /hpf (None Seen); Urine Blood Negative /uL (Negative); Urine Clarity Turbid (Clear); Urine Color Colorless (Yellow); Urine Protein, UAD Negative (Negative); Urine Specific Gravity 1.009 (1.001-1.035); Urine Squamous Epithelial Cell FEW /hpf (<5); Urine Urobilinogen Normal (Negative); Urine WBC 4 /HPF (0-5)
[2024-10-31 08:03] LABS: BUN/Creatinine Ratio 9.4 (10.0-20.0); Blood Urea Nitrogen 9 mg/dL (9-23)
[2024-10-31 08:04] LABS: Glucose 118 mg/dL (74-106)
[2024-10-31 09:22] LABS: Lipase 38 U/L (12-53)
[2024-10-31 09:36] VITALS: BP 126/82; PULSE 79; RESP 20; O2SAT 98
== END 2024-10-31 09:36 | disposition home or self-care (01) ==
LOC: ER 06:25
DX: R10.13 Epigastric pain (principal); R30.0 Dysuria; F41.9 Anxiety disorder, unspecified; F32.A Depression, unspecified; F20.9 Schizophrenia, unspecified; Z79.899 Other long term (current) drug therapy; Z32.02 Encounter for pregnancy test, result negative; Z88.6 Allergy status to analgesic agent
CPT/HCPCS: 36415; 80048; 81001; 81025; 83690; 85025